=== PATIENT | female | born 1955 | race Caucasian/White ===

== ENCOUNTER 2017-01-13 11:44 | Emergency (ER) | payer BC, OTHER ==
[~2017-01-13] VITALS: Ht 157.5 cm; Wt 58.1 kg
[2017-01-13 12:17] VITALS: BP 132/96
[2017-01-13 12:22] LABS: MEAN CORPUSCULAR HEMOGLOBIN 33.5 PG (27.0-31.0); MEAN CORPUSCULAR HGB CONC 33.3 G/DL (32.0-36.0); MEAN CORPUSCULAR VOLUME 101 FL (80-99); MEAN PLATELET VOLUME 8.9 FL (6.5-10.1); PLATELET COUNT 93 K/UL (150-450); RED BLOOD COUNT 4.32 M/UL (4.20-5.40); RED CELL DISTRIBUTION WIDTH 11.9 % (11.6-14.8); WHITE BLOOD COUNT 3.2 K/UL (4.8-10.8)
[2017-01-13 12:35] LABS: ALANINE AMINOTRANSFERASE 271 U/L (3-33); ANION GAP 16 (5-15); ASPARTATE AMINO TRANSFERASE 327 U/L (5-40); CALCIUM 9.8 mg/dL (8.6-10.2); CARBON DIOXIDE 24 mEQ/L (20-30); CHLORIDE 99 mEQ/L (98-107); CREATININE 0.7 mg/dL (0.5-0.9); GLOMERULAR FILTRATION RATE > 60 mL/min (>60); HEMOLYSIS 0; POTASSIUM 4.7 mEQ/L (3.4-4.9); SODIUM 139 mEQ/L (135-145); TOTAL PROTEIN 8.2 g/dL (6.6-8.7); TROPONIN I < 0.30 ng/mL (<=0.30)
[2017-01-13 12:45] VITALS: BP 170/77
[2017-01-13 12:45] LABS: CKMB < 1.5 ng/mL (< 3.8)
[2017-01-13] MEDS ORDERED: LORazepam Inj 2mg/ml 1ml IV ONE (12:45)
[2017-01-13 12:56] LABS: BILIRUBIN,DIRECT 0.3 mg/dL (0.1-0.3)
[2017-01-13] MEDS ORDERED: Ketorolac 30mg Inj IV ONE (13:00)
[2017-01-13 13:02] LABS: BAND NEUTROPHILS % (MANUAL) 0 % (0-8); BASOPHILS % (MANUAL) 0 % (0-2); EOSINOPHILS % (MANUAL) 3 % (0-3); LYMPHOCYTES % (MANUAL) 67 % (20-45); MACROCYTES 1+; NEUTROPHILS % (MANUAL) 24 % (45-75); PLATELET ESTIMATE DECREASED; PLATELET MORPHOLOGY NORMAL; TOTAL CELLS COUNTED 100
[2017-01-13] MEDS ORDERED: CYCLOBENZAPRINE10 MG ORAL (13:05)
[2017-01-13] MEDS ORDERED: SOMA350 MG PO (13:06)
[2017-01-13] MEDS ORDERED: ATIVAN1 MG ORAL (13:07)
[2017-01-13 13:21] VITALS: BP 141/73
--- NOTE | 2017-01-13 14:01 | Emergency Room Report ---
History of Present Illness General Chief Complaint: Chest Pain Source: Patient Present Illness HPI 61-year-old female presents ED complaining of neck and chest pain. Started this morning. Pain is sharp, 8/10, radiating from the neck through the left- sided chest. Worse with deep breaths. Denies fevers or chills or cough. Denies shortness of breath. history of alcohol use. Denies drug use. No other aggravating relieving factors. Denies any other associated symptoms Allergies: Coded Allergies: Bumble Bee (Verified Allergy, Unknown, 01/13/17) EGG (Verified Allergy, Unknown, 01/13/17) PENICILLINS (Verified Allergy, Unknown, 01/13/17) Patient History Past Medical History: other - Hep C Past Surgical History: none Pertinent Family History: none Social History: Reports: alcohol use, Denies: drug use, smoking Now: No Immunizations: UTD Reviewed Nursing Documentation: PMH: Agreed, PSxH: Agreed Nursing Documentation-PMH Past Medical History: No History, Except For Hx Gastrointestinal Problems: Yes - HEP C Review of Systems All Other Systems: negative except mentioned in HPI Physical Exam Vital Signs Date Time Temp Pulse Resp B/P Pulse Ox O2 Delivery O2 Flow Rate FiO2 01/13/17 11:47 97.9 78 20 181/91 97 Room Air Sp02 EP Interpretation: reviewed, normal General Appearance: no apparent distress, alert, GCS 15, non-toxic Head: normocephalic Eyes: bilateral eye PERRL, bilateral eye normal inspection ENT: normal ENT inspection Neck: normal inspection, no bony tend, tender lateral Respiratory: lungs clear, normal breath sounds, speaking full sentences, other - reproducible L sided chest wall pain Cardiovascular #1: regular rate, rhythm, no edema Gastrointestinal: normal bowel sounds, non tender, soft, non-distended, no guarding, no rebound Rectal: deferred Genitourinary: no CVA tenderness Musculoskeletal: normal inspection Neurologic: alert, oriented x3, responsive, motor strength/tone normal, sensory intact, speech normal Psychiatric: normal inspection Skin: normal inspection Lymphatic: normal inspection Medical Decision Making Diagnostic Impression: Primary Impression: Chest wall pain ER Course Hospital Course 51-year-old female presents ED complaining of reproducible chest wall pain Differential diagnoses include: Rib fracture, SD/unstable angina, contusion, muscle strain Clinical course Patient placed on stretcher. After initial history and physical I ordered labs , EKG, chest x-ray. labs reviewed- all electrolytes normal, troponins negative, no leukocytosis, hemoglobin/hematocrit stable, LFTS elevated EKG - NSR, no acute changes Chest x-ray-no cardiomegaly, no rib fracture, no pneumothorax, no acute process clinical findings consistent with muscle strain. Reassurance given. Patient given Toradol for pain. Upon reassessment patient states pain is improved. given ativan for anxiety I. I feel this is a highly complex case requiring extensive working including EKG/Rhythm strip, Xray/CT/US, Blood/urine lab work, repeat exams while in ED, and administration of strong opiates/narcotics for pain control, admission to hospital or close patient follow up. Diagnosis - chest wall pain Stable and discharged to home with prescription for Soma, Ativan. Instructed to followup with PMD. Return to ED if symptoms recur or worsen my chest wall pain shortness Labs Test 01/13/17 12:10 White Blood Count 3.2 K/UL (4.8-10.8) Red Blood Count 4.32 M/UL (4.20-5.40) Hemoglobin 14.5 G/DL (12.0-16.0) Hematocrit 43.4 % (37.0-47.0) Mean Corpuscular Volume 101 FL (80-99) Mean Corpuscular Hemoglobin 33.5 PG (27.0-31.0) Mean Corpuscular Hemoglobin Concent 33.3 G/DL (32.0-36.0) Red Cell Distribution Width 11.9 % (11.6-14.8) Platelet Count 93 K/UL (150-450) Mean Platelet Volume 8.9 FL (6.5-10.1) Neutrophils (%) (Auto) % (45.0-75.0) Lymphocytes (%) (Auto) % (20.0-45.0) Monocytes (%) (Auto) % (1.0-10.0) Eosinophils (%) (Auto) % (0.0-3.0) Basophils (%) (Auto) % (0.0-2.0) Differential Total Cells Counted 100 Neutrophils % (Manual) 24 % (45-75) Lymphocytes % (Manual) 67 % (20-45) Monocytes % (Manual) 6 % (1-10) Eosinophils % (Manual) 3 % (0-3) Basophils % (Manual) 0 % (0-2) Band Neutrophils 0 % (0-8) Platelet Estimate Decreased Platelet Morphology Normal Macrocytosis 1+ Sodium Level 139 mEQ/L (135-145) Potassium Level 4.7 mEQ/L (3.4-4.9) Chloride Level 99 mEQ/L (98-107) Carbon Dioxide Level 24 mEQ/L (20-30) Anion Gap 16 (5-15) Blood Urea Nitrogen 9 mg/dL (7-23) Creatinine 0.7 mg/dL (0.5-0.9) Estimat Glomerular Filtration Rate > 60 mL/min (>60) Glucose Level 130 mg/dL (74-106) Calcium Level 9.8 mg/dL (8.6-10.2) Total Bilirubin 1.1 mg/dL (0.0-1.2) Direct Bilirubin 0.3 mg/dL (0.1-0.3) Aspartate Amino Transf (AST/SGOT) 327 U/L (5-40) Alanine Aminotransferase (ALT/SGPT) 271 U/L (3-33) Alkaline Phosphatase 124 U/L (35-104) Total Creatine Kinase 42 U/L (26-140) Creatine Kinase MB < 1.5 ng/mL (< 3.8) Creatine Kinase MB Relative Index 3.5 Troponin I < 0.30 ng/mL (<=0.30) Total Protein 8.2 g/dL (6.6-8.7) Albumin 4.1 g/dL (3.5-5.2) Globulin 4.1 g/dL Albumin/Globulin Ratio 1.0 (1.0-2.7) EKG Diagnostic Results Rate: normal Rhythm: NSR ST Segments: no acute changes ASA given to the pt in ED: No Rhythm Strip Diag. Results EP Interpretation: yes Rhythm: NSR, no PVC's, no ectopy Chest X-Ray Diagnostic Results EP Interpretation: Yes Findings: no consolidation, no effusion, no pneumothorax, no acute cardiopulmonary disease Number of Views: 1 Last Vital Signs Date Time Temp Pulse Resp B/P Pulse Ox O2 Delivery O2 Flow Rate FiO2 01/13/17 13:21 64 15 141/73 99 Room Air 01/13/17 12:17 98.0 Status: improved Disposition: HOME, SELF-CARE Condition: Stable Scripts Lorazepam* (ATIVAN*) 1 Mg Tablet 1 MG ORAL THREE TIMES A DAY, #20 TAB Prov: EBONI DUFFY M.D. 01/13/17 Carisoprodol* (SOMA*) 350 Mg Tablet 350 MG PO Q6H, #20 TAB Prov: EBONI DUFFY M.D. 01/13/17 Referrals: [facility],REFERRING (PCP) NOT CHOSEN [facility],REFERRING Patient Instructions: Chest Wall Pain, [id number] EBONI DUFFY M.D. Jan 13, 2017 14:01
--- NOTE | 2017-01-14 10:40 | Diagnostic Imaging Report ---
Indication: Chest pain Technique: XRAY CHEST 1 V Comparison: 04/02/12 Findings: The cardiomediastinal silhouette is within normal limits. There is no focal consolidation, pneumothorax or pleural effusion. Osseous structures demonstrate no acute abnormality. Impression: No acute cardiopulmonary disease.
--- NOTE | 2017-01-17 16:17 | Cardiology Report ---
APPROVED REPORT EKG Measurement Heart [id number] Normal sinus rhythm Normal ECG
== END 2017-01-13 13:29 | disposition home or self-care (01) ==
LOC: EMR 12:17
DX: R07.89 Other chest pain (principal); M54.2 Cervicalgia; Z88.0 Allergy status to penicillin; Z91.012 Allergy to eggs; Z91.030 Bee allergy status; Z86.19 Personal history of other infectious and parasitic diseases; F41.9 Anxiety disorder, unspecified
CPT/HCPCS: 36415; 71010; 80053; 82248; 82550; 82553; 84484; 85007; 85025; 93005; 96374; 96375; 99284; J1885